=== PATIENT | male | born 1990 | race Caucasian/White ===

== ENCOUNTER 2017-07-29 07:29 | Emergency (ER) | payer OTHER ==
[2017-07-29 07:34] VITALS: BP 142/94; PULSE 88; RESP 20; TEMP 98
--- NOTE | 2017-07-29 07:48 | ED ---
General Adult HPI - General Chief complaint: Dental/Oral Stated complaint: dental pain Time Seen by Provider: 07/29/17 07:35 Source: patient, RN notes reviewed Mode of arrival: ambulatory Limitations: no limitations - History of Present Illness Initial comments: Patient 27-year-old male presented to the emergency room today with a chief complaint of dental pain over the last 3 days. Admits to pain to the left upper side. Patient states she has been calling around but nobody excesses insurance. Denies any drainage or discharge. Denies any other complaints. Patient denies any recent fever, chills, shortness of breath, chest pain, back pain, abdominal pain, nausea or vomiting, numbness or tingling, headaches or visual changes, or any other complaints. - Related Data Previous Rx's Medication Instructions Recorded Clindamycin HCl [Cleocin] 300 mg PO Q6HR 10 Days cap 07/29/17 Ibuprofen [Motrin] 800 mg PO Q6HR #30 tab 07/29/17 Allergies Allergy/AdvReac Type Severity Reaction Status Date / Time amoxicillin [Amoxicillin] Allergy Rash/Hives Verified 07/29/17 07:34 Review of Systems ROS Statement: Those systems with pertinent positive or pertinent negative responses have been documented in the HPI. ROS Other: All systems not noted in ROS Statement are negative. Past Medical History Past Medical History: No Reported History History of Any Multi-Drug Resistant Organisms: None Reported Past Surgical History: No Surgical Hx Reported Past Psychological History: No Psychological Hx Reported Smoking Status: Never smoker Past Alcohol Use History: Occasional Past Drug Use History: None Reported General Exam - General Exam Comments Initial Comments: General: The patient is awake and alert, in no distress, and does not appear acutely ill. Eye: Pupils are equal, round and reactive to light, extra-ocular movements are intact. No nystagmus. There is normal conjunctiva bilaterally. No signs of icterus. Ears, nose, mouth and throat: There are moist mucous membranes and no oral lesions. Patient does have tenderness over the gumline of tooth #15. There is no sign of abscess. Uvula midline. Patient swallows without difficulty. Neck: The neck is supple, there is no tenderness or JVD. Musculoskeletal: Normal ROM, no tenderness. Strength 5/5. Sensation intact. Pulses equal bilaterally 2+. Neurological: A&O x 3. CN II-XII intact, There are no obvious motor or sensory deficits. Coordination appears grossly intact. Speech is normal. Skin: Skin is warm and dry and no rashes or lesions are noted. Psychiatric: Cooperative, appropriate mood & affect, normal judgment. Limitations: no limitations Course Vital Signs 07/29/17 07:33 Temperature 98.0 F Pulse Rate 88 Respiratory 20 Rate Blood Pressure 142/94 O2 Sat by Pulse 100 Oximetry Medical Decision Making - Medical Decision Making Patient advised calling his insurance to see if there is a list that they can give him a dentist excepted. Also given information for [facility] dental program. Will be started on antibiotics clindamycin due to her amoxicillin ALLERGY. Continue anti-inflammatories for pain. Disposition Clinical Impression: Pain, dental Disposition: HOME SELF-CARE Condition: Good Instructions: Toothache (ED) Additional Instructions: Please follow-up with dentist and use antibiotic and pain medication as discussed. [facility] [address] [address] [phone]) (existing clients only) For new clients: [phone] [facility] Pay $50 for x-rays and the rest discovered [phone] Prescriptions: Clindamycin HCl [Cleocin] 300 mg PO Q6HR 10 Days cap Ibuprofen [Motrin] 800 mg PO Q6HR #30 tab Referrals: None,Stated [Primary Care Provider] - 1-2 days Time of Disposition: 07:46
== END 2017-07-29 08:05 | disposition home or self-care (01) ==
LOC: EC 07:29
DX: K08.89 Other specified disorders of teeth and supporting structures (principal); Z88.0 Allergy status to penicillin
CPT/HCPCS: 99282

== ENCOUNTER 2018-05-11 07:28 | Emergency (ER) | payer OTHER ==
[2018-05-11] MEDS ORDERED: ONDANSETRON 4 MG/2 ML VIAL IVP STA (07:50)
[2018-05-11] MEDS ORDERED: SODIUM CHLORIDE 0.9% 1,000 ML IV STA (07:50)
[2018-05-11] MEDS ORDERED: HYDROmorphone 0.5 MG/0.5 ML SYRINGE IVP STA (07:50)
[2018-05-11] MEDS ORDERED: KETOROLAC 30 MG/ML 1 ML VIAL IVP STA (07:50)
--- NOTE | 2018-05-11 07:52 | ED ---
Abdominal Pain HPI - General Chief Complaint: Abdominal Pain Stated Complaint: Side/Abdominal Pain Time Seen by Provider: 05/11/18 07:35 Source: patient, RN notes reviewed, old records reviewed Mode of arrival: ambulatory Limitations: no limitations - History of Present Illness Initial Comments: This Patient is a 27-year-old male presents emergency room today with onset of left-sided abdominal pain rating towards his groin starting at 5 AM today. Patient states has history of kidney stones. He states he did have a bowel movement today which was normal. Patient states that he was close to vomiting due to the pain. Patient states that his previous kidney since passed on his own without any lithotripsy or stenting. He denies any other complaints. - Related Data Previous Rx's Medication Instructions Recorded HYDROcodone/APAP 5-325MG [[place] 1 tab PO Q6HR PRN 3 Days #12 tab 05/11/18 5-325] Ibuprofen [Motrin] 600 mg PO Q6HR PRN #20 tab 05/11/18 Ondansetron [Zofran] 4 mg PO Q8HR PRN #12 tab 05/11/18 Tamsulosin [Flomax] 0.4 mg PO DAILY #7 cap 05/11/18 Allergies Allergy/AdvReac Type Severity Reaction Status Date / Time amoxicillin [Amoxicillin] Allergy Rash/Hives Verified 05/11/18 07:51 Review of Systems ROS Statement: Those systems with pertinent positive or pertinent negative responses have been documented in the HPI. ROS Other: All systems not noted in ROS Statement are negative. Past Medical History Past Medical History: No Reported History History of Any Multi-Drug Resistant Organisms: None Reported Past Surgical History: No Surgical Hx Reported Past Psychological History: No Psychological Hx Reported Smoking Status: Never smoker Past Alcohol Use History: Occasional Past Drug Use History: None Reported General Exam - General Exam Comments Initial Comments: 27-year-old male. Alert and oriented. No distress. Limitations: no limitations General appearance: alert, in no apparent distress Head exam: Present: atraumatic, normocephalic, normal inspection Eye exam: Present: normal appearance, PERRL, EOMI. Absent: scleral icterus, conjunctival injection, periorbital swelling ENT exam: Present: normal exam, mucous membranes moist Neck exam: Present: normal inspection. Absent: tenderness, meningismus, lymphadenopathy Respiratory exam: Present: normal lung sounds bilaterally. Absent: respiratory distress, wheezes, rales, rhonchi, stridor Cardiovascular Exam: Present: regular rate, normal rhythm, normal heart sounds. Absent: systolic murmur, diastolic murmur, rubs, gallop, clicks GI/Abdominal exam: Present: soft, normal bowel sounds. Absent: distended, tenderness, guarding, rebound, rigid Extremities exam: Present: normal inspection, full ROM, normal capillary refill. Absent: tenderness, pedal edema, joint swelling, calf tenderness Back exam: Present: normal inspection Neurological exam: Present: alert, oriented X3, CN II-XII intact Psychiatric exam: Present: normal affect Skin exam: Present: warm, dry, intact, normal color. Absent: rash Course Vital Signs 05/11/18 07:30 Temperature 98.1 F Pulse Rate 98 Respiratory 20 Rate Blood Pressure 156/107 O2 Sat by Pulse 100 Oximetry Medical Decision Making - Medical Decision Making Patient is a 27-year-old male with onset of left-sided flank pain. Counselors brain 5 AM. Patient's urinalysis is positive for blood. Lab work was reviewed. Normal white blood cell count. He does have a mildly elevated lipase. He does report to drinking this weekend relatively heavily. Discussed that this could be monitored and to avoid alcohol do clear liquid diet for the next one-two days. Patient agrees. Patient computed tomography scan does show evidence of a 5 mm stone within the urinary bladder. Likely recently passed from the ureteral vesicular junction. Patient will be discharged at this time with follow-up with primary care provider and urology. Discharged with Flomax pain medicine and nausea medicine. - Lab Data Result diagrams: 05/11/18 08:05 05/11/18 08:05 Lab Results 05/11/18 05/11/18 05/11/18 Range/Units 08:05 08:05 08:05 WBC 7.4 (3.8-10.6) k/uL RBC 5.38 (4.30-5.90) m/uL Hgb 16.1 (13.0-17.5) gm/dL Hct 47.9 (39.0-53.0) % MCV 89.0 (80.0-100.0) fL MCH 29.8 (25.0-35.0) pg MCHC 33.5 (31.0-37.0) g/dL RDW 12.1 (11.5-15.5) % Plt Count 266 (150-450) k/uL Neutrophils % 59 % Lymphocytes % 31 % Monocytes % 5 % Eosinophils % 2 % Basophils % 1 % Neutrophils # 4.4 (1.3-7.7) k/uL Lymphocytes # 2.3 (1.0-4.8) k/uL Monocytes # 0.4 (0-1.0) k/uL Eosinophils # 0.1 (0-0.7) k/uL Basophils # 0.1 (0-0.2) k/uL PT 10.1 (9.0-12.0) sec INR 0.9 (<1.2) APTT 23.4 (22.0-30.0) sec Sodium 141 (137-145) mmol/L Potassium 4.2 (3.5-5.1) mmol/L Chloride 104 (98-107) mmol/L Carbon Dioxide 29 (22-30) mmol/L Anion Gap 8 mmol/L BUN 11 (9-20) mg/dL Creatinine 1.01 (0.66-1.25) mg/dL Est GFR (CKD-EPI)AfAm >90 (>60 ml/min/1.73 sqM) Est GFR (CKD-EPI)NonAf >90 (>60 ml/min/1.73 sqM) Glucose 110 H (74-99) mg/dL Calcium 9.8 (8.4-10.2) mg/dL Total Bilirubin 1.3 (0.2-1.3) mg/dL AST 39 (17-59) U/L ALT 63 (21-72) U/L Alkaline Phosphatase 63 (38-126) U/L Total Protein 7.5 (6.3-8.2) g/dL Albumin 4.6 (3.5-5.0) g/dL Amylase 96 (30-110) U/L Lipase 484 H (23-300) U/L Urine Color Urine Appearance (Clear) Urine pH (5.0-8.0) Ur Specific [place] (1.001-1.035) Urine Protein (Negative) Urine Glucose (UA) (Negative) Urine Ketones (Negative) Urine Blood (Negative) Urine Nitrite (Negative) Urine Bilirubin (Negative) Urine Urobilinogen (<2.0) mg/dL Ur Leukocyte Esterase (Negative) Urine RBC (0-5) /hpf Urine WBC (0-5) /hpf Urine Mucus (None) /hpf 05/11/18 Range/Units 08:05 WBC (3.8-10.6) k/uL RBC (4.30-5.90) m/uL Hgb (13.0-17.5) gm/dL Hct (39.0-53.0) % MCV (80.0-100.0) fL MCH (25.0-35.0) pg MCHC (31.0-37.0) g/dL RDW (11.5-15.5) % Plt Count (150-450) k/uL Neutrophils % % Lymphocytes % % Monocytes % % Eosinophils % % Basophils % % Neutrophils # (1.3-7.7) k/uL Lymphocytes # (1.0-4.8) k/uL Monocytes # (0-1.0) k/uL Eosinophils # (0-0.7) k/uL Basophils # (0-0.2) k/uL PT (9.0-12.0) sec INR (<1.2) APTT (22.0-30.0) sec Sodium (137-145) mmol/L Potassium (3.5-5.1) mmol/L Chloride (98-107) mmol/L Carbon Dioxide (22-30) mmol/L Anion Gap mmol/L BUN (9-20) mg/dL Creatinine (0.66-1.25) mg/dL Est GFR (CKD-EPI)AfAm (>60 ml/min/1.73 sqM) Est GFR (CKD-EPI)NonAf (>60 ml/min/1.73 sqM) Glucose (74-99) mg/dL Calcium (8.4-10.2) mg/dL Total Bilirubin (0.2-1.3) mg/dL AST (17-59) U/L ALT (21-72) U/L Alkaline Phosphatase (38-126) U/L Total Protein (6.3-8.2) g/dL Albumin (3.5-5.0) g/dL Amylase (30-110) U/L Lipase (23-300) U/L Urine Color Yellow Urine Appearance Clear (Clear) Urine pH 5.5 (5.0-8.0) Ur Specific [place] 1.022 (1.001-1.035) Urine Protein 1+ H (Negative) Urine Glucose (UA) Negative (Negative) Urine Ketones Negative (Negative) Urine Blood Moderate H (Negative) Urine Nitrite Negative (Negative) Urine Bilirubin Negative (Negative) Urine Urobilinogen 2.0 (<2.0) mg/dL Ur Leukocyte Esterase Negative (Negative) Urine RBC 39 H (0-5) /hpf Urine WBC 4 (0-5) /hpf Urine Mucus Few H (None) /hpf - Radiology Data Radiology results: report reviewed 5 mm left-sided calculus within the urinary bladder just distal to the left ureteral vesicle junction creating minimal left hydroureter nephrosis. Nonobstructing left lower pole 4 mm of millimeter renal colic. Hepatic C ptosis splenomegaly or instantly seen. Disposition Clinical Impression: Left ureteral stone, Elevated lipase Disposition: HOME SELF-CARE Condition: Good Instructions: Ureteral Stones (ED) Additional Instructions: Advised to rest, drink plenty of fluids. Follow-up with primary care doctor and urology. Take medications as prescribed. Should pass the stone within the next day. Return to the emergency department if any alarming signs or symptoms occur. Prescriptions: HYDROcodone/APAP 5-325MG [[place] 5-325] 1 tab PO Q6HR PRN 3 Days #12 tab PRN Reason: Pain Ibuprofen [Motrin] 600 mg PO Q6HR PRN #20 tab PRN Reason: Pain Ondansetron [Zofran] 4 mg PO Q8HR PRN #12 tab PRN Reason: Nausea Tamsulosin [Flomax] 0.4 mg PO DAILY #7 cap Is patient prescribed a controlled substance at d/c from ED?: Yes When asked, does pt state using other controlled substances?: No If prescribed controlled substance>3 days was MAPS reviewed?: Prescribed <3 Days If opioid is for acute pain is fill amount 7 days or less?: Yes If Rx opioid, was Start Talking consent form obtained?: Yes Referrals: None,Stated [Primary Care Provider] - 1-2 days Elen Schmid MD [STAFF PHYSICIAN] - 1-2 days Faisal Calderon MD [STAFF PHYSICIAN] - 1-2 days Time of Disposition: 09:16
[2018-05-11 08:30] LABS: Basophils # (A) 0.1 k/uL (0-0.2); Basophils % (A) 1 %; Eosinophils # (A) 0.1 k/uL (0-0.7); Eosinophils % (A) 2 %; HCT 47.9 % (39.0-53.0); HGB 16.1 gm/dL (13.0-17.5); Lymphocytes # (A) 2.3 k/uL (1.0-4.8); Lymphocytes % (A) 31 %; MCH 29.8 pg (25.0-35.0); MCHC 33.5 g/dL (31.0-37.0); Mean Platelet Volume 6.6; Monocytes # (A) 0.4 k/uL (0-1.0); Monocytes % (A) 5 %; Neutrophils # (A) 4.4 k/uL (1.3-7.7); Neutrophils % (A) 59 %; Platelet Count 266 k/uL (150-450); RBC 5.38 m/uL (4.30-5.90); RDW 12.1 % (11.5-15.5); WBC 7.4 k/uL (3.8-10.6)
[2018-05-11 08:42] LABS: Appearance,Urine Clear (Clear); Bilirubin,Urine Negative (Negative); Blood,Urine Moderate (Negative); Color,Urine Yellow; Glucose,Urine (UA) Negative (Negative); INR 0.9 (<1.2); Ketones,Urine Negative (Negative); Leukocyte Esterase,Urine Negative (Negative); Mucus,Urine Few /hpf; Nitrite,Urine Negative (Negative); PH, Urine 5.5 (5.0-8.0); Partial Thromboplastin Time 23.4 sec (22.0-30.0); Protein,Urine 1+ (Negative); Prothrombin Time 10.1 sec (9.0-12.0); RBC,Urine 39 /hpf (0-5); Specific Gravity,Urine 1.022 (1.001-1.035); WBC,Urine 4 /hpf (0-5)
[2018-05-11 08:49] LABS: ALT 63 U/L (21-72); AST 39 U/L (17-59); Albumin 4.6 g/dL (3.5-5.0); Alkaline Phosphatase 63 U/L (38-126); Amylase 96 U/L (30-110); Anion Gap 8 mmol/L; Blood Urea Nitrogen 11 mg/dL (9-20); Calcium 9.8 mg/dL (8.4-10.2); Carbon Dioxide 29 mmol/L (22-30); Chloride 104 mmol/L (98-107); Glucose 110 mg/dL (74-99); Lipase 484 U/L (23-300); Potassium 4.2 mmol/L (3.5-5.1); Sodium 141 mmol/L (137-145); Total Bilirubin 1.3 mg/dL (0.2-1.3); Total Protein 7.5 g/dL (6.3-8.2)
--- NOTE | 2018-05-11 08:59 | CT ---
EXAMINATION TYPE: CT abdomen pelvis wo con DATE OF EXAM: 05/11/2018 COMPARISON: None HISTORY: Left sided abdominal pain, anterior CT DLP: 872.4 mGycm Automated exposure control for dose reduction was used. TECHNIQUE: Helical acquisition of images was performed from the lung bases through the pelvis. FINDINGS: LUNG BASES: No significant abnormality is appreciated. LIVER/GB: Hepatic parenchyma is diffusely hypoattenuated in comparison to that of the spleen, most co mmonly seen in hepatic steatosis. This finding limits evaluation for hepatic masses. No gross evidenc e of hepatic mass is seen. No intrahepatic biliary ductal dilatation. No cholelithiasis PANCREAS: No significant abnormality is seen. SPLEEN: Spleen is enlarged measuring 15.4 cm in longitudinal dimension. ADRENALS: No significant abnormality is seen. KIDNEYS: There is a 5 mm calculus within the urinary bladder just past the left ureterovesicular junc tion with minimal left hydroureteronephrosis. Additional nonobstructing 4 mm and 7 mm calculi are see n within the left lower pole. No right renal calculi are noted. Urinary bladder is decompressed and i ncompletely evaluated. FREE AIR: No free air is visualized ADENOPATHY: No greater than 1 cm short axis lymph nodes are appreciated within the abdomen or pelvis given the limitation of lack of intravenous contrast. OSSEOUS STRUCTURES: Osseous structures appear intact. BOWEL: Appendix is air-filled and within normal limits. No large or small bowel dilatation is seen. OTHER: There is a 2 mm fat filled periumbilical hernia. Haziness of the central mesentery may be reac tive to the retroperitoneal process and is overall nonspecific finding. IMPRESSION: 1. 5 MM LEFT SIDED CALCULUS WITHIN THE URINARY BLADDER JUST DISTAL TO THE LEFT URETEROVESICULAR JUNCT ION CREATING MINIMAL LEFT HYDROURETERONEPHROSIS. 2. NONOBSTRUCTING LEFT LOWER POLE 4 MM AND 7 MM RENAL CALCULI. 3. HEPATIC STEATOSIS AND SPLENOMEGALY ARE INCIDENTALLY SEEN.
[2018-05-11] MEDS ORDERED: TAMSULOSIN 0.4 MG CAP.ER.24H PO STA (09:19)
[2018-05-11 09:36] VITALS: BP 118/75; PULSE 76; RESP 18; TEMP 97
== END 2018-05-11 09:44 | disposition home or self-care (01) ==
LOC: EC 07:28
DX: N13.2 Hydronephrosis with renal and ureteral calculous obstruction (principal); R74.8 Abnormal levels of other serum enzymes; R16.1 Splenomegaly, not elsewhere classified; Z88.0 Allergy status to penicillin
CPT/HCPCS: 36415; 80053; 82150; 83690; 85025; 85610; 85730; 81001; 87086; 74176; 99285; 96374; 96375 ×2; 96361; J2405; J1885; J1170

== ENCOUNTER 2020-08-01 11:25 | Emergency (ER) | payer OTHER ==
[2020-08-01] MEDS ORDERED: ACETAMINOPHEN TAB 500 MG TAB PO STA (12:32)
[2020-08-01 12:35] VITALS: RESP 22
--- NOTE | 2020-08-01 12:35 | ED ---
General Adult HPI <ThomindiaGerardo subramanian Mark Anthony - Last Filed: 08/01/20 12:34> <Harjinder Uriarte - Last Filed: 08/01/20 19:14> - General Stated complaint: cough, SOB, headache Time Seen by Provider: 08/01/20 12:30 - History of Present Illness Initial comments: Medical screening history and physical: Patient presenting with cough, fever, myalgias, sore throat and mild dyspnea. Concern for coronavirus. Patient otherwise healthy. Patient is febrile, tachycardic, stable blood pressure, oxygenation is 93% on room air. Mild tachypnea. Decreased air entry bilaterally with bronchospastic cough. (JennaGerardo Hopson) 30-year-old male presents to the emergency department with a chief complaint of cough fever and sore throat. States symptoms and ongoing for approximately one week. There is a concern for Covid with a possible exposure. He reports mild exertional dyspnea but denies any chest pain. He also reports a continuous nonproductive cough. Eyes any nausea vomiting or diarrhea. Denies taking medication at home to alleviate the symptoms. He has been taking Tylenol and Motrin for the fever. (Harjinder Uriarte) - Related Data Previous Rx's Medication Instructions Recorded HYDROcodone/APAP 5-325MG [[place] 1 tab PO Q6HR PRN 3 Days #12 tab 05/11/18 5-325] Ibuprofen [Motrin] 600 mg PO Q6HR PRN #20 tab 05/11/18 Ondansetron [Zofran] 4 mg PO Q8HR PRN #12 tab 05/11/18 Tamsulosin [Flomax] 0.4 mg PO DAILY #7 cap 05/11/18 Dexamethasone [Decadron] 6 mg PO DAILY #6 tablet 08/01/20 Allergies Allergy/AdvReac Type Severity Reaction Status Date / Time amoxicillin [Amoxicillin] Allergy Rash/Hives Verified 08/01/20 12:35 Review of Systems ROS Other: All systems not noted in ROS Statement are negative. <ThomcoletteGerardo Mark Anthony - Last Filed: 08/01/20 12:34> ROS Other: All systems not noted in ROS Statement are negative. <Harjinder Uriarte - Last Filed: 08/01/20 19:14> ROS Statement: Those systems with pertinent positive or pertinent negative responses have been documented in the HPI. Past Medical History Past Medical History: No Reported History History of Any Multi-Drug Resistant Organisms: None Reported Past Surgical History: No Surgical Hx Reported Past Psychological History: No Psychological Hx Reported Past Alcohol Use History: Occasional Past Drug Use History: None Reported <Gerardo West - Last Filed: 08/01/20 12:34> General Exam Limitations: no limitations General appearance: alert, in no apparent distress Head exam: Present: atraumatic, normocephalic, normal inspection Eye exam: Present: normal appearance, PERRL, EOMI Pupils: Present: normal accommodation ENT exam: Present: normal exam, normal oropharynx, mucous membranes moist Neck exam: Present: normal inspection, full ROM. Absent: tenderness Respiratory exam: Present: normal lung sounds bilaterally. Absent: respiratory distress, wheezes, rales, rhonchi, stridor, chest wall tenderness, accessory muscle use Cardiovascular Exam: Present: regular rate, normal rhythm, normal heart sounds Extremities exam: Present: normal inspection, full ROM, normal capillary refill. Absent: tenderness, pedal edema, joint swelling Back exam: Present: normal inspection, full ROM. Absent: tenderness, CVA tenderness (R), CVA tenderness (L) Neurological exam: Present: alert, oriented X3 Psychiatric exam: Present: normal affect, normal mood Skin exam: Present: warm, dry, intact, normal color <Harjinder Uriarte - Last Filed: 08/01/20 19:14> Course Vital Signs 08/01/20 08/01/20 12:31 14:34 Temperature 103.1 F H 100.6 F H Pulse Rate 122 H 97 Respiratory 22 22 Rate Blood Pressure 109/79 112/74 O2 Sat by Pulse 94 L 95 Oximetry Medical Decision Making <Harjinder Uriarte - Last Filed: 08/01/20 19:14> - Medical Decision Making 30-year-old male presents to emergency Department with a chief complaint of cough and fever. On physical examination patient does not appear to be in respiratory distress. He does have a continuous nonproductive cough. Patient does not fit criteria for monoclonal antibody. X-ray suggestive of pneumonia. He is positive for Covid. I offered further laboratory work, patient declined. I will start the patient on a course of 6 mg by mouth Decadron. 95% on room air rest. Advised the patient to quarantine and return to emergency department if his symptoms worsen. Case discussed with Dr. Shay. (Harjinder Uriarte) - Lab Data Lab Results 08/01/20 Range/Units 12:36 Coronavirus (PCR) Detected A (Not Detectd) Disposition <Gerardo West Mark Anthony - Last Filed: 08/01/20 12:34> Is patient prescribed a controlled substance at d/c from ED?: No Time of Disposition: 13:58 <Harjinder Uriarte - Last Filed: 08/01/20 19:14> Clinical Impression: Pneumonia due to COVID-19 virus Disposition: HOME SELF-CARE Condition: Stable Instructions (If sedation given, give patient instructions): Coronavirus Disease 2019 (COVID-19) Additional Instructions: Please return to the Emergency Department if symptoms worsen or any other concerns.. Quarantine for the next 10 days. Take Tylenol for the fever. Prescriptions: Dexamethasone [Decadron] 6 mg PO DAILY #6 tablet Referrals: None,Stated [Primary Care Provider] - 1-2 days
--- NOTE | 2020-08-01 13:01 | XR ---
EXAMINATION TYPE: XR chest 1V portable DATE OF EXAM: 08/01/2020 COMPARISON: Chest x-ray 07/14/2014 HISTORY: Cough and difficulty breathing, shortness breath TECHNIQUE: Single frontal view of the chest is obtained. FINDINGS: Patchy densities present within the lungs left greater than right, there is no pneumothora x or pleural effusion. Lung volumes are low. Cardiac mediastinal silhouette shows a similar appearanc e, question some prominence of pulmonary artery, correlate to exclude pulmonary artery hypertension. IMPRESSION: Correlate for pneumonia, additional findings above.
[2020-08-01 14:35] VITALS: BP 112/74; PULSE 97; TEMP 100.6
== END 2020-08-01 14:35 | disposition home or self-care (01) ==
LOC: EC 11:25
DX: U07.1 COVID-19 (principal); J12.82 Pneumonia due to coronavirus disease 2019; Z88.0 Allergy status to penicillin
CPT/HCPCS: 71045; 87635; 99285